=== PATIENT | female | born 1965 | race Caucasian/White ===

== ENCOUNTER → 2017-09-10 | Outpatient (CLI) | payer BC ==
[~2017-09-10] MED LIST: BSP5 PO; CHOL1TAB PO; CLON1TAB3 PO; CYM60 PO; GABA-112 PO; OXYC1TAB3 PO; OXYSR/20 PO
--- NOTE | 2017-09-10 12:34 | DIAGNOSTIC IMAGING REPORT ---
KUB CLINICAL HISTORY: CONSTIPATION pain COMPARISON STUDY: No previous studies for comparison. FINDINGS: Nonobstructive bowel pattern. Minimal nonobstructive ileus. Several pelvic vascular calcifications. No secondary signs of free air. IMPRESSION: Mild nonobstructive ileus. Normal fecal load. The above report was generated using voice recognition software. It may contain grammatical, syntax or spelling errors. Electronically signed by: Adam Waldron M.D. 09/10/2017 12:33 PM Dictated Date/Time: 09/10/2017 12:32 PM
== END | disposition home or self-care (01) ==
LOC: C.RAD 11:42
DX: K59.00 Constipation, unspecified (principal)

== ENCOUNTER → 2017-09-21 | Outpatient (CLI) | payer BC ==
--- NOTE | 2017-09-25 08:32 | MAMMOGRAPHY REPORT ---
BILATERAL DIGITAL SCREENING MAMMOGRAM TOMOSYNTHESIS WITH CAD: 09/21/2017 CLINICAL HISTORY: Routine screening. Patient has no complaints. TECHNIQUE: Breast tomosynthesis in addition to standard 2D mammography was performed. Current study was also evaluated with a Computer Aided Detection (CAD) system. COMPARISON: Comparison is made to exams dated: 09/15/2016 mammogram, 01/23/2014 mammogram, 01/03/2013 m ammogram, 12/11/2011 mammogram, 07/19/2011 mammogram, and 12/14/2010 mammogram - [facility]ter. BREAST COMPOSITION: The tissue of both breasts is heterogeneously dense, which may obscure small mas ses. FINDINGS: No suspicious masses, calcifications, or areas of architectural distortion are noted in ei ther breast. There has been no significant interval change compared to prior exams. IMPRESSION: ACR BI-RADS CATEGORY 1: NEGATIVE There is no mammographic evidence of malignancy. A 1 year screening mammogram is recommended. The pa tient will receive written notification of the results. Approximately 10% of breast cancers are not detected with mammography. A negative mammographic report should not delay biopsy if a clinically suggestive mass is present. Kimberley Valente M.D. ah/:09/21/2017 15:34:54 [employer] Director: Lauren Duff RT(R)(M), [facility] letter sent: Normal 1/2 BI-RADS Code: ACR BI-RADS Category 1: Negative
== END | disposition home or self-care (01) ==
LOC: C.MAMM 14:54
DX: Z12.31 Encounter for screening mammogram for malignant neoplasm of breast (principal)